=== PATIENT | female | born 1940 | race Caucasian/White ===

== ENCOUNTER 2018-06-13 09:57 | Outpatient (CLI) | payer MEDICARE, BC ==
--- NOTE | 2018-06-13 11:01 | BD ---
BONE DENSITOMETRY USING DEXA: Date: 06/13/18 HISTORY: Postmenopausal screening for osteoporosis. FINDINGS: Lumbar Spine: BMD (g/cm2) L1 0.688 T-Score: -2.7 Z-Score: -0.5 L2 0.774 T-Score: -2.3 Z-Score: 0.2 L3 0.787 T-Score: -2.7 Z-Score: 0.0 L4 0.921 T-Score: -1.3 Z-Score: 1.5 L1-L4 0.799 T-Score: -2.3 Z-Score: 0.3 Femoral Neck: 0.558 T-Score: -2.6 Z-Score: -0.4 Total Femur: 0.714 T-Score: -1.9 Z-Score: 0.1 IMPRESSION: Osteoporosis. POS: [facility]
== END 2018-06-13 09:58 | disposition home or self-care (01) ==
LOC: BICMAMMO 09:57
PROVIDERS: ATTEND Family Medicine
DX: Z13.820 Encounter for screening for osteoporosis (principal); M81.0 Age-related osteoporosis without current pathological fracture
CPT/HCPCS: 77080

== ENCOUNTER 2018-07-30 13:54 | Emergency (ER) | payer MEDICARE, BC | END 2018-07-30 14:52 | disposition home or self-care (01) | LOC: SCSER 13:54 | DX: J11.1 Influenza due to unidentified influenza virus with other respiratory manifestations (principal) | CPT/HCPCS: 99282 ==

== ENCOUNTER 2019-07-21 14:48 | Outpatient (CLI) | payer MEDICARE, BC ==
--- NOTE | 2019-07-21 16:07 | MMO ---
Bilateral MAMMO Bilat Screen [facility]. CLINICAL HISTORY: Patient is 79 years old and is seen for screening. The patient has no family history of breast cancer. The patient has no personal history of cancer. VIEWS: The views performed were: bilateral craniocaudal with tomosynthesis and bilateral mediolateral oblique with tomosynthesis. FILMS COMPARED: The present examination has been compared to prior imaging studies performed at [facility] on 06/23/2008, 06/10/2013, 05/29/2015 and 06/06/2016. This study has been interpreted with the assistance of computer-aided detection. MAMMOGRAM FINDINGS: There are scattered fibroglandular densities. Benign calcifications are noted bilaterally. There are no suspicious masses, suspicious calcifications, or new areas of architectural distortion. IMPRESSION: THERE IS NO MAMMOGRAPHIC EVIDENCE OF MALIGNANCY. A ROUTINE FOLLOW-UP MAMMOGRAM IN 1 YEAR IS RECOMMENDED. THE RESULTS OF THIS EXAM WERE SENT TO THE PATIENT. ACR BI-RADS Category 2 - Benign finding MAMMOGRAPHY NOTE: 1. A negative mammogram report should not delay a biopsy if a dominant of clinically suspicious mass is present. 2. Approximately 10% to 15% of breast cancers are not detected by mammography. 3. Adenosis and dense breasts may obscure an underlying neoplasm. Reported by: DANIELE MELVIN MD Electonically Signed: [id number]
== END 2019-07-21 14:49 | disposition home or self-care (01) ==
LOC: BICMAMMO 14:48
PROVIDERS: ATTEND Family Medicine
DX: Z12.31 Encounter for screening mammogram for malignant neoplasm of breast (principal)
CPT/HCPCS: 77063; 77067